=== PATIENT | female | born 1980 | race Two or more races ===

== ENCOUNTER 2022-09-18 12:09 | Emergency (ER) | payer OTHER, SELFPAY ==
--- NOTE | ~2022-09-18 | XR_ITS ---
EXAMINATION: XR CHEST CLINICAL INFORMATION: Cough and shortness of breath. COMPARISON: None TECHNIQUE: 2 views of the chest were obtained. FINDINGS: No significant abnormality is noted involving the heart, lungs, mediastinum, bony thorax or soft tissues. XR/XR chest 2V IMPRESSION: No acute cardiopulmonary process.
[2022-09-18 12:36] VITALS: BP 190/121; PULSE 90; RESP 20; TEMP 36.1; O2SAT 97; BMI 40.7
--- NOTE | 2022-09-18 12:36 | ED_ITS ---
HPI - General Adult General Chief complaint: Dyspnea <Analisa Murray CNP - Last Filed: 09/18/22 12:44> Stated complaint: High blood pressure sent by <Analisa Murray CNP - Last Filed: 09/18/22 12:44> Time Seen by Provider: 09/18/22 17:49 <Analisa Murray CNP - Last Filed: 09/18/22 12:44> Source: patient <Caitlyn Harvey NP - Last Filed: 09/18/22 23:11> Mode of arrival: ambulatory <Caitlyn Harvey NP - Last Filed: 09/18/22 23:11> Limitations: no limitations <Caitlyn Harvey NP - Last Filed: 09/18/22 23:11> History of Present Illness HPI narrative: 42-year-old female presents with 5 days of upper respiratory symptoms, cough, congestion, on Tessalon, albuterol, nebulizers, and Mucinex with no improvement. Also reports that her blood pressure readings have been elevated, and has a headache. She does take amlodipine daily. <Caitlyn Harvey NP - Last Filed: 09/18/22 23:11> Onset (ago): day(s) (5) <Caitlyn Harvey NP - Last Filed: 09/18/22 23:11> Location: head and chest <Caitlyn Harvey NP - Last Filed: 09/18/22 23:11> Radiation: non-radiation <Caitlyn Harvey NP - Last Filed: 09/18/22 23:11> Severity: moderate <Caitlyn Harvey NP - Last Filed: 09/18/22 23:11> Severity scale (1-10): 5 <Caitlyn Harvey NP - Last Filed: 09/18/22 23:11> Quality: aching <Caitlyn Harvey NP - Last Filed: 09/18/22 23:11> Pain Consistency: constant <Caitlyn Harvey NP - Last Filed: 09/18/22 23:11> Relieving factors: none <Caitlyn Harvey NP - Last Filed: 09/18/22 23:11> Exacerbating factors: movement <Caitlyn Harvey NP - Last Filed: 09/18/22 23:11> Associated symptoms: cough, headaches and shortness of breath <Caitlyn Harvey NP - Last Filed: 09/18/22 23:11> Related Data Home medications: Previous Rx's Medication Instructions Recorded albuterol sulfate 2.5 mg/3 mL 2.5 mg (3 mL) inhalation Q4-6H PRN 09/18/22 (0.083 %) solution for nebulization shortness of breath or wheezing #90 mL albuterol sulfate 90 mcg/actuation 2 inh inhalation Q4-6H PRN 09/18/22 breath activated powder inhaler shortness of breath or wheezing #1 ea amlodipine 10 mg tablet 10 mg PO DAILY #30 tabs 09/18/22 prednisone 20 mg tablet 40 mg PO DAILY 5 days #10 tabs 09/18/22 sumatriptan succinate 25 mg tablet 25 mg PO Q2-4H PRN migraine 09/18/22 (Imitrex) headache #8 tabs <Analisa Murray CNP - Last Filed: 09/18/22 12:44> Allergies/adverse reactions: Allergies Allergy/AdvReac Type Severity Reaction Status Date / Time No Known Allergies Allergy Verified 09/18/22 12:42 <Analisa Murray CNP - Last Filed: 09/18/22 12:44> Review of Systems Review of Systems: Constitutional: No Fever, positive Chills, positive fatigue, positive Malaise ENT/Mouth: No sore throat, positive runny nose Eyes: No Discharge Cardiovascular: No Chest Pain, No SOB Respiratory: Positive Cough, No Sputum, positive Wheezing, No Dyspnea Gastrointestinal: No Nausea, No Vomiting, No Diarrhea Musculoskeletal: positive Myalgia Skin: No rash Neuro: Positive Headache <Caitlyn Harvey NP - Last Filed: 09/18/22 23:11> Yes all other systems are reviewed and are negative <Caitlyn Harvey NP - Last Filed: 09/18/22 23:11> PMFSH Past Medical History Attestation statement: The following information was validated with the patient. <Caitlyn Harvey NP - Last Filed: 09/18/22 23:11> Source: old records reviewed <Caitlyn Harvey NP - Last Filed: 09/18/22 23:11> Social History Social History: Social History Alcohol intake: never Smoked in Last 30 Days: No Use of substances other than those prescribed or required for medical reasons: Yes Substance Use Type: Marijuana Advance Directives: No Advance Directives Information Provided: Yes Patient : No <Analisa Mi ANA Murray - Last Filed: 09/18/22 12:44> Physical Exam ED Vital Signs: Vital Signs - 24 hr 09/18/22 12:36 09/18/22 16:37 09/18/22 18:47 Temperature 97.0 F 98.7 F 98.2 F Pulse Rate 90 97 101 H Respiratory Rate 20 17 16 Blood Pressure 190/121 H 186/107 H 181/96 H Pulse Oximetry 97 98 98 Oxygen Delivery Method Room Air Room Air Room Air 09/18/22 18:50 09/18/22 19:45 Temperature Pulse Rate 89 106 H Respiratory Rate 18 15 Blood Pressure 194/110 H Pulse Oximetry 100 Oxygen Delivery Method Room Air BMI result Body Mass Index 40.7 <Analisa Stark ANA Murray - Last Filed: 09/18/22 12:44> Vital Signs - 24 hr 09/18/22 12:36 09/18/22 16:37 09/18/22 18:47 Temperature 97.0 F 98.7 F 98.2 F Pulse Rate 90 97 101 H Respiratory Rate 20 17 16 Blood Pressure 190/121 H 186/107 H 181/96 H Pulse Oximetry 97 98 98 Oxygen Delivery Method Room Air Room Air Room Air 09/18/22 18:50 09/18/22 19:45 Temperature Pulse Rate 89 106 H Respiratory Rate 18 15 Blood Pressure 194/110 H Pulse Oximetry 100 Oxygen Delivery Method Room Air BMI result Body Mass Index 40.7 <Caitlyn Harvey NP - Last Filed: 09/18/22 23:11> Appearance: Alert. Oriented X3. Moderate distress. Eyes: Pupils equal, round and reactive to light. ENT: Pharynx normal. Neck: Normal inspection. Neck supple. No nuchal rigidity. No step-offs. CVS: Normal heart rate and rhythm. Pulses normal. Respiratory: No respiratory distress. Expiratory wheezing throughout. Abdomen: Soft and nontender. Skin: Skin warm and dry. Normal skin color. Normal skin turgor. Extremities: No lower extremity edema. Gait well balanced well coordinated. Neuro: No motor deficit. No sensory deficit. Cranial nerves 2-12 intact. <Caitlyn Harvey NP - Last Filed: 09/18/22 23:11> Course Course Course Narrative: This is an RME: Additional HPI, ROS, PE not included below will be deferre d to primary provider. Patient is a 42-year-old female who presents emergency department for evaluation. Two days ago she began feeling unwell, cold-like symptoms; cough, generalized abdominal cramping, has a history of asthma, has been using her nebulizer treatment multiple times since yesterday. Expresses concern because her blood pressure was 175/104 last night, 195/137 today. Complaining of palpitations, lightheadedness, headache. Called PCP who advised her to come to ED. Has tried Mucinex and Tessalon Perles without any improvement. Denies sick contacts. Plan: labs, EKG, viral testing, CXR, will provide additional dose of amlodipine 5 mg orally at this time <Analisa Murray CNP - Last Filed: 09/18/22 12:44> This is an RME: Additional HPI, ROS, PE not included below will be deferred to primary provider. Patient is a 42-year-old female who presents emergency department for evaluation. Two days ago she began feeling unwell, cold-like symptoms; cough, generalized abdominal cramping, has a history of asth ma, has been using her nebulizer treatment multiple times since yesterday. Expresses concern because her blood pressure was 175/104 last night, 195/137 today. Complaining of palpitations, lightheadedness, headache. Called PCP who advised her to come to ED. Has tried Mucinex and Tessalon Perles without any improvement. Denies sick contacts. Plan: labs, EKG, viral testing, CXR, will provide additional dose of amlodipine 5 mg orally at this time 18:23 42-year-old female presents with upper respiratory symptoms, has been using her nebulizers, Tessalon Perles, [id number] medications including Mucinex with poor effect. She states that she feels her heart racing, and has a headache. She takes amlodipine 5 mg daily, has been taking her blood pressures over the past few days in noting it to be in the 190s over 110s. She did not report any neurological dysfunction, and has no difficulties ambulating. She did state that she had an episode of dizziness while changing positions however that resolved. Patient's lung sounds are extra mikey wheezing throughout all lobes. Will give albuterol neb, dexamethasone p.o.. At this time I feel this is more asthma exacerbation versus infection, antibiotics are not required. 20:10 lung sounds have improved. Headache has resolved. Lab values are within normal limits. Urinalysis shows trace leukocyte esterase without nitrites or white blood cell count. No bacteria noted. Urinalysis is otherwise negative. Again antibiotics not required at this time. Will discharge patient to home with supportive measures, and an increase in amlodipine to 10 mg daily. She does understand that she must take her blood pressure at the same time daily, and presents blood pressures to her primary care physician. Patient verbalized understanding of and agrees plan of care discharge home. Verbalized understanding of signs and symptoms indicating need for emergent intervention. <Caitlyn Harvey NP - Last Filed: 09/18/22 23:11> Medications Administered Discontinued Medications Generic Name Dose Route Start Last Admin Trade Name Freq PRN Reason Stop Dose Admin Acetaminophen/Butalbital/Caffeine 1 tab 09/18/22 18:23 09/18/22 18:45 Butalb/Acetamin/Caff 50/325/40 Tablet PO 09/18/22 18:24 1 tab ONCE ONE Administration Albuterol Sulfate 10 mg 09/18/22 18:23 09/18/22 18:49 Albuterol Sulfate (0.083%) 2.5 Mg/3 Ml Vial.Neb INHALE 09/18/22 18:24 10 mg ONCE ONE Administration Amlodipine Besylate 5 mg 09/18/22 12:40 09/18/22 12:45 Amlodipine Besylate 5 Mg Tablet PO 09/18/22 12:41 5 mg ONCE ONE Administration Protocol Dexamethasone 10 mg 09/18/22 18:41 09/18/22 18:45 Dexamethasone 2 Mg Tablet PO 09/18/22 18:42 10 mg ONCE ONE Administration <Analisa Murray CNP - Last Filed: 09/18/22 12:44> Medications Administered Discontinued Medications Generic Name Dose Route Start Last Admin Trade Name Freq PRN Reason Stop Dose Admin Acetaminophen/Butalbital/Caffeine 1 tab 09/18/22 18:23 09/18/22 18:45 Butalb/Acetamin/Caff 50/325/40 Tablet PO 09/18/22 18:24 1 tab ONCE ONE Administration Albuterol Sulfate 10 mg 09/18/22 18:23 09/18/22 18:49 Albuterol Sulfate (0.083%) 2.5 Mg/3 Ml Vial.Neb INHALE 09/18/22 18:24 10 mg ONCE ONE Administration Amlodipine Besylate 5 mg 09/18/22 12:40 09/18/22 12:45 Amlodipine Besylate 5 Mg Tablet PO 09/18/22 12:41 5 mg ONCE ONE Administration Protocol Dexamethasone 10 mg 09/18/22 18:41 09/18/22 18:45 Dexamethasone 2 Mg Tablet PO 09/18/22 18:42 10 mg ONCE ONE Administration <Caitlyn Harvey NP - Last Filed: 09/18/22 23:11> Medical Decision Making Differential Diagnosis Differential Diagnoses: The differential diagnosis associated with the presentation includes <Caitlyn Harvey NP - Last Filed: 09/18/22 23:11> URI COVID, influenza, migraine, asthma exacerbation <Caitlyn Harvey NP - Last Filed: 09/18/22 23:11> Lab Data MDM Lab Attestation statement: I reviewed the patient's lab results. <Caitlyn Harvey NP - Last Filed: 09/18/22 23:11> Result Diagrams: 09/18/22 13:07 09/18/22 13:07 <Analisa Murray CNP - Last Filed: 09/18/22 12:44> Labs: Lab Results 09/18/22 09/18/22 09/18/22 Range/Units 13:07 13:07 13:07 WBC 9.2 (4.8-10.8) X10*3/uL RBC 4.69 (4.20-5.50) X10*6/uL Hgb 13.4 (12.0-16.0) g/dl Hct 41.8 (37.0-47.0) % MCV 89.1 (80.0-98.0) fL MCH 28.6 (27.0-33.0) pg MCHC 32.1 (31.0-35.0) g/dl RDW 13.4 (11.0-16.0) % Plt Count 331 (160-400) X10*3/uL MPV 10.9 (9.4-12.3) fL Immature Gran % (Auto) 0.9 H (0.0-0.4) % Neut % (Auto) 63.6 (45-73) % Lymph % (Auto) 21.5 (20-40) % [place] % (Auto) 8.6 (2-11) % Eos % (Auto) 4.5 H (0-4) % Baso % (Auto) 0.9 (0-2) % Lymph # (Auto) 2.0 (1.2-4.9) X10*3/uL [place] # (Auto) 0.8 (0.1-1.2) X10*3/uL Eos # (Auto) 0.4 (0.0-0.4) X10*3/uL Baso # (Auto) 0.1 (0.0-0.2) X10*3/uL Abs Immat Gran (auto) 0.08 H (0.00-0.03) X10*3/uL Absolute Neuts (auto) 5.9 (2.0-8.3) x10*3/uL Absolute Nucleated RBC 0.000 (0.0-0.012) X10*3/uL Nucleated RBC % (auto) 0.0 (0.0-0.2) /100WBC Sodium 140 (135-145) mmol/L Potassium 4.0 (3.3-5.1) mmol/L Chloride 105 (96-108) mmol/L Carbon Dioxide 27 (22-29) mmol/L Anion Gap 12 (12-20) BUN 11 (9-16) mg/dL Creatinine 0.68 (0.5-1.4) mg/dL Estim Creat Clear Calc 144.6 Estimated GFR > 60 Random Glucose 101 (60-115) mg/dL Calcium 9.2 (8.4-10.2) mg/dL Magnesium 2.1 (1.6-2.6) mg/dL Total Bilirubin 1.4 H (0.0-1.0) mg/dL AST 24 (5-31) U/L ALT 26 (0-31) U/L Alkaline Phosphatase 121 H (39-117) U/L Troponin I High Sens < 3.5 (<3.5-17.0) ng/L B-Natriuretic Peptide (<100) pg/mL Total Protein 7.2 (6.5-8.0) g/dL Albumin 4.4 (3.5-5.0) g/dL Urine Color Urine Appearance Urine pH (5.0-9.0) Ur Specific [place] (1.005-1.025) Urine Protein (Neg-Trace) mg/dL Urine Glucose (UA) (Negative) mg/dL Urine Ketones (Negative) mg/dL Urine Blood (Negative) Urine Nitrite (Negative) Ur Leukocyte Esterase (Negative) Urine RBC (0-2) /HPF Urine WBC (0-5) /HPF Ur Squamous Epith Cells (0-2) /HPF Urine Bacteria (None Seen) Hyaline Casts (0-2) /LPF Urine Test (NEGATIVE) COVID-19 ([facility]) (Negative) COVID-19 Clin Com Influenza Type A ([place]) (Negative) Influenza Type B ([place]) (Negative) Influenza A & B Note 09/18/22 09/18/22 09/18/22 Range/Units 13:07 13:07 13:07 WBC (4.8-10.8) X10*3/uL RBC (4.20-5.50) X10*6/uL Hgb (12.0-16.0) g/dl Hct (37.0-47.0) % MCV (80.0-98.0) fL MCH (27.0-33.0) pg MCHC (31.0-35.0) g/dl RDW (11.0-16.0) % Plt Count (160-400) X10*3/uL MPV (9.4-12.3) fL Immature Gran % (Auto) (0.0-0.4) % Neut % (Auto) (45-73) % Lymph % (Auto) (20-40) % [place] % (Auto) (2-11) % Eos % (Auto) (0-4) % Baso % (Auto) (0-2) % Lymph # (Auto) (1.2-4.9) X10*3/uL [place] # (Auto) (0.1-1.2) X10*3/uL Eos # (Auto) (0.0-0.4) X10*3/uL Baso # (Auto) (0.0-0.2) X10*3/uL Abs Immat Gran (auto) (0.00-0.03) X10*3/uL Absolute Neuts (auto) (2.0-8.3) x10*3/uL Absolute Nucleated RBC (0.0-0.012) X10*3/uL Nucleated RBC % (auto) (0.0-0.2) /100WBC Sodium (135-145) mmol/L Potassium (3.3-5.1) mmol/L Chloride (96-108) mmol/L Carbon Dioxide (22-29) mmol/L Anion Gap (12-20) BUN (9-16) mg/dL Creatinine (0.5-1.4) mg/dL Estim Creat Clear Calc Estimated GFR Random Glucose (60-115) mg/dL Calcium (8.4-10.2) mg/dL Magnesium (1.6-2.6) mg/dL Total Bilirubin (0.0-1.0) mg/dL AST (5-31) U/L ALT (0-31) U/L Alkaline Phosphatase (39-117) U/L Troponin I High Sens (<3.5-17.0) ng/L B-Natriuretic Peptide < 10 (<100) pg/mL Total Protein (6.5-8.0) g/dL Albumin (3.5-5.0) g/dL Urine Color Urine Appearance Urine pH (5.0-9.0) Ur Specific [place] (1.005-1.025) Urine Protein (Neg-Trace) mg/dL Urine Glucose (UA) (Negative) mg/dL Urine Ketones (Negative) mg/dL Urine Blood (Negative) Urine Nitrite (Negative) Ur Leukocyte Esterase (Negative) Urine RBC (0-2) /HPF Urine WBC (0-5) /HPF Ur Squamous Epith Cells (0-2) /HPF Urine Bacteria (None Seen) Hyaline Casts (0-2) /LPF Urine Test (NEGATIVE) COVID-19 ([facility]) Negative (Negative) COVID-19 Clin Com See Note Influenza Type A ([place]) Negative (Negative) Influenza Type B ([place]) Negative (Negative) Influenza A & B Note See Note 09/18/22 09/18/22 Range/Units 16:45 16:45 WBC (4.8-10.8) X10*3/uL RBC (4.20-5.50) X10*6/uL Hgb (12.0-16.0) g/dl Hct (37.0-47.0) % MCV (80.0-98.0) fL MCH (27.0-33.0) pg MCHC (31.0-35.0) g/dl RDW (11.0-16.0) % Plt Count (160-400) X10*3/uL MPV (9.4-12.3) fL Immature Gran % (Auto) (0.0-0.4) % Neut % (Auto) (45-73) % Lymph % (Auto) (20-40) % [place] % (Auto) (2-11) % Eos % (Auto) (0-4) % Baso % (Auto) (0-2) % Lymph # (Auto) (1.2-4.9) X10*3/uL [place] # (Auto) (0.1-1.2) X10*3/uL Eos # (Auto) (0.0-0.4) X10*3/uL Baso # (Auto) (0.0-0.2) X10*3/uL Abs Immat Gran (auto) (0.00-0.03) X10*3/uL Absolute Neuts (auto) (2.0-8.3) x10*3/uL Absolute Nucleated RBC (0.0-0.012) X10*3/uL Nucleated RBC % (auto) (0.0-0.2) /100WBC Sodium (135-145) mmol/L Potassium (3.3-5.1) mmol/L Chloride (96-108) mmol/L Carbon Dioxide (22-29) mmol/L Anion Gap (12-20) BUN (9-16) mg/dL Creatinine (0.5-1.4) mg/dL Estim Creat Clear Calc Estimated GFR Random Glucose (60-115) mg/dL Calcium (8.4-10.2) mg/dL Magnesium (1.6-2.6) mg/dL Total Bilirubin (0.0-1.0) mg/dL AST (5-31) U/L ALT (0-31) U/L Alkaline Phosphatase (39-117) U/L Troponin I High Sens (<3.5-17.0) ng/L B-Natriuretic Peptide (<100) pg/mL Total Protein (6.5-8.0) g/dL Albumin (3.5-5.0) g/dL Urine Color Yellow Urine Appearance Clear Urine pH 6.5 (5.0-9.0) Ur Specific [place] 1.020 (1.005-1.025) Urine Protein Trace (Neg-Trace) mg/dL Urine Glucose (UA) Negative (Negative) mg/dL Urine Ketones 15 (Negative) mg/dL Urine Blood Negative (Negative) Urine Nitrite Negative (Negative) Ur Leukocyte Esterase Trace H (Negative) Urine RBC 3-5 H (0-2) /HPF Urine WBC 0-5 (0-5) /HPF Ur Squamous Epith Cells 6-10 (0-2) /HPF Urine Bacteria None Seen (None Seen) Hyaline Casts 0-2 (0-2) /LPF Urine Test NEGATIVE (NEGATIVE) COVID-19 ([facility]) (Negative) COVID-19 Clin Com Influenza Type A ([place]) (Negative) Influenza Type B ([place]) (Negative) Influenza A & B Note <Analisa Murray, MUSEUM ATTENDANT - Last Filed: 09/18/22 12:44> Lab Results 09/18/22 09/18/22 09/18/22 Range/Units 13:07 13:07 13:07 WBC 9.2 (4.8-10.8) X10*3/uL RBC 4.69 (4.20-5.50) X10*6/uL Hgb 13.4 (12.0-16.0) g/dl Hct 41.8 (37.0-47.0) % MCV 89.1 (80.0-98.0) fL MCH 28.6 (27.0-33.0) pg MCHC 32.1 (31.0-35.0) g/dl RDW 13.4 (11.0-16.0) % Plt Count 331 (160-400) X10*3/uL MPV 10.9 (9.4-12.3) fL Immature Gran % (Auto) 0.9 H (0.0-0.4) % Neut % (Auto) 63.6 (45-73) % Lymph % (Auto) 21.5 (20-40) % [place] % (Auto) 8.6 (2-11) % Eos % (Auto) 4.5 H (0-4) % Baso % (Auto) 0.9 (0-2) % Lymph # (Auto) 2.0 (1.2-4.9) X10*3/uL [place] # (Auto) 0.8 (0.1-1.2) X10*3/uL Eos # (Auto) 0.4 (0.0-0.4) X10*3/uL Baso # (Auto) 0.1 (0.0-0.2) X10*3/uL Abs Immat Gran (auto) 0.08 H (0.00-0.03) X10*3/uL Absolute Neuts (auto) 5.9 (2.0-8.3) x10*3/uL Absolute Nucleated RBC 0.000 (0.0-0.012) X10*3/uL Nucleated RBC % (auto) 0.0 (0.0-0.2) /100WBC Sodium 140 (135-145) mmol/L Potassium 4.0 (3.3-5.1) mmol/L Chloride 105 (96-108) mmol/L Carbon Dioxide 27 (22-29) mmol/L Anion Gap 12 (12-20) BUN 11 (9-16) mg/dL Creatinine 0.68 (0.5-1.4) mg/dL Estim Creat Clear Calc 144.6 Estimated GFR > 60 Random Glucose 101 (60-115) mg/dL Calcium 9.2 (8.4-10.2) mg/dL Magnesium 2.1 (1.6-2.6) mg/dL Total Bilirubin 1.4 H (0.0-1.0) mg/dL AST 24 (5-31) U/L ALT 26 (0-31) U/L Alkaline Phosphatase 121 H (39-117) U/L Troponin I High Sens < 3.5 (<3.5-17.0) ng/L B-Natriuretic Peptide (<100) pg/mL Total Protein 7.2 (6.5-8.0) g/dL Albumin 4.4 (3.5-5.0) g/dL Urine Color Urine Appearance Urine pH (5.0-9.0) Ur Specific [place] (1.005-1.025) Urine Protein (Neg-Trace) mg/dL Urine Glucose (UA) (Negative) mg/dL Urine Ketones (Negative) mg/dL Urine Blood (Negative) Urine Nitrite (Negative) Ur Leukocyte Esterase (Negative) Urine RBC (0-2) /HPF Urine WBC (0-5) /HPF Ur Squamous Epith Cells (0-2) /HPF Urine Bacteria (None Seen) Hyaline Casts (0-2) /LPF Urine Test (NEGATIVE) COVID-19 ([facility]) (Negative) COVID-19 Clin Com Influenza Type A ([place]) (Negative) Influenza Type B ([place]) (Negative) Influenza A & B Note 09/18/22 09/18/22 09/18/22 Range/Units 13:07 13:07 13:07 WBC (4.8-10.8) X10*3/uL RBC (4.20-5.50) X10*6/uL Hgb (12.0-16.0) g/dl Hct (37.0-47.0) % MCV (80.0-98.0) fL MCH (27.0-33.0) pg MCHC (31.0-35.0) g/dl RDW (11.0-16.0) % Plt Count (160-400) X10*3/uL MPV (9.4-12.3) fL Immature Gran % (Auto) (0.0-0.4) % Neut % (Auto) (45-73) % Lymph % (Auto) (20-40) % [place] % (Auto) (2-11) % Eos % (Auto) (0-4) % Baso % (Auto) (0-2) % Lymph # (Auto) (1.2-4.9) X10*3/uL [place] # (Auto) (0.1-1.2) X10*3/uL Eos # (Auto) (0.0-0.4) X10*3/uL Baso # (Auto) (0.0-0.2) X10*3/uL Abs Immat Gran (auto) (0.00-0.03) X10*3/uL Absolute Neuts (auto) (2.0-8.3) x10*3/uL Absolute Nucleated RBC (0.0-0.012) X10*3/uL Nucleated RBC % (auto) (0.0-0.2) /100WBC Sodium (135-145) mmol/L Potassium (3.3-5.1) mmol/L Chloride (96-108) mmol/L Carbon Dioxide (22-29) mmol/L Anion Gap (12-20) BUN (9-16) mg/dL Creatinine (0.5-1.4) mg/dL Estim Creat Clear Calc Estimated GFR Random Glucose (60-115) mg/dL Calcium (8.4-10.2) mg/dL Magnesium (1.6-2.6) mg/dL Total Bilirubin (0.0-1.0) mg/dL AST (5-31) U/L ALT (0-31) U/L Alkaline Phosphatase (39-117) U/L Troponin I High Sens (<3.5-17.0) ng/L B-Natriuretic Peptide < 10 (<100) pg/mL Total Protein (6.5-8.0) g/dL Albumin (3.5-5.0) g/dL Urine Color Urine Appearance Urine pH (5.0-9.0) Ur Specific [place] (1.005-1.025) Urine Protein (Neg-Trace) mg/dL Urine Glucose (UA) (Negative) mg/dL Urine Ketones (Negative) mg/dL Urine Blood (Negative) Urine Nitrite (Negative) Ur Leukocyte Esterase (Negative) Urine RBC (0-2) /HPF Urine WBC (0-5) /HPF Ur Squamous Epith Cells (0-2) /HPF Urine Bacteria (None Seen) Hyaline Casts (0-2) /LPF Urine Test (NEGATIVE) COVID-19 ([facility]) Negative (Negative) COVID-19 Clin Com See Note Influenza Type A ([place]) Negative (Negative) Influenza Type B ([place]) Negative (Negative) Influenza A & B Note See Note 03/03/23 03/03/23 Range/Units 16:45 16:45 WBC (4.8-10.8) X10*3/uL RBC (4.20-5.50) X10*6/uL Hgb (12.0-16.0) g/dl Hct (37.0-47.0) % MCV (80.0-98.0) fL MCH (27.0-33.0) pg MCHC (31.0-35.0) g/dl RDW (11.0-16.0) % Plt Count (160-400) X10*3/uL MPV (9.4-12.3) fL Immature Gran % (Auto) (0.0-0.4) % Neut % (Auto) (45-73) % Lymph % (Auto) (20-40) % [place] % (Auto) (2-11) % Eos % (Auto) (0-4) % Baso % (Auto) (0-2) % Lymph # (Auto) (1.2-4.9) X10*3/uL [place] # (Auto) (0.1-1.2) X10*3/uL Eos # (Auto) (0.0-0.4) X10*3/uL Baso # (Auto) (0.0-0.2) X10*3/uL Abs Immat Gran (auto) (0.00-0.03) X10*3/uL Absolute Neuts (auto) (2.0-8.3) x10*3/uL Absolute Nucleated RBC (0.0-0.012) X10*3/uL Nucleated RBC % (auto) (0.0-0.2) /100WBC Sodium (135-145) mmol/L Potassium (3.3-5.1) mmol/L Chloride (96-108) mmol/L Carbon Dioxide (22-29) mmol/L Anion Gap (12-20) BUN (9-16) mg/dL Creatinine (0.5-1.4) mg/dL Estim Creat Clear Calc Estimated GFR Random Glucose (60-115) mg/dL Calcium (8.4-10.2) mg/dL Magnesium (1.6-2.6) mg/dL Total Bilirubin (0.0-1.0) mg/dL AST (5-31) U/L ALT (0-31) U/L Alkaline Phosphatase (39-117) U/L Troponin I High Sens (<3.5-17.0) ng/L B-Natriuretic Peptide (<100) pg/mL Total Protein (6.5-8.0) g/dL Albumin (3.5-5.0) g/dL Urine Color Yellow Urine Appearance Clear Urine pH 6.5 (5.0-9.0) Ur Specific [place] 1.020 (1.005-1.025) Urine Protein Trace (Neg-Trace) mg/dL Urine Glucose (UA) Negative (Negative) mg/dL Urine Ketones 15 (Negative) mg/dL Urine Blood Negative (Negative) Urine Nitrite Negative (Negative) Ur Leukocyte Esterase Trace H (Negative) Urine RBC 3-5 H (0-2) /HPF Urine WBC 0-5 (0-5) /HPF Ur Squamous Epith Cells 6-10 (0-2) /HPF Urine Bacteria None Seen (None Seen) Hyaline Casts 0-2 (0-2) /LPF Urine Test NEGATIVE (NEGATIVE) COVID-19 ([facility]) (Negative) COVID-19 Clin Com Influenza Type A ([place]) (Negative) Influenza Type B ([place]) (Negative) Influenza A & B Note <Caitlyn Harvey NP - Last Filed: 09/18/22 23:11> Independent Interpretation I performed an independent interpretation of an: EKG and Plain X-Ray <Caitlyn Harvey NP - Last Filed: 09/18/22 23:11> Interpretation: Normal sinus rhythm Normal ECG No previous ECGs available Vent. rate 82 BPM ID interval 144 ms QRS duration 86 ms QT/QTc 384/448 ms P-R-T axes - 43 18-SEP-2022 13:00:17 <Caitlyn Harvey NP - Last Filed: 09/18/22 23:11> Radiology Impression Discussion of test interpretation with radiology: I have reviewed the radiologist's reading. <Caitlyn Harvey NP - Last Filed: 09/18/22 23:11> Radiologist Impression: EXAMINATION: XR CHEST CLINICAL INFORMATION: Cough and shortness of breath. COMPARISON: None TECHNIQUE: 2 views of the chest were obtained. FINDINGS: No significant abnormality is noted involving the heart, lungs, mediastinum, bony thorax or soft tissues. XR/XR chest 2V IMPRESSION: No acute cardiopulmonary process. <Caitlyn Harvey NP - Last Filed: 09/18/22 23:11> Discharge Plan Discharge Clinical Impression: Asthma with exacerbation, Hypertension, Headache, common migraine <Analisa Murray CNP - Last Filed: 09/18/22 12:44> Patient Disposition: Home, Self-Care <Analisa Murray CNP - Last Filed: 09/18/22 12:44> Instructions: Asthma (ED), Migraine Headache (ED), Hypertension (ED) <Analisa Murray CNP - Last Filed: 09/18/22 12:44> Additional Instructions: You were evaluated for multiple concerns. For asthma, please take albuterol inhalers every 4 hours as needed. Use albuterol nebulizers every 4-6 hours as needed for shortness of breath that is not alleviated by your inhaler usage. We gave you dexamethasone while you were in the emergency department. If your symptoms persist, take prednisone 40 mg for the next 5 days. Please start this medication on 09/21/2022. For your headache, we gave you Fioricet while you were in the emergency departme nt which was effective. We are prescribing use sumatriptan, take this medication as directed for headaches that are not resolved with Tylenol and Motrin. You may consider following up primary care physician if headaches persist. For your elevated blood pressure, please increase her amlodipine from 5 mg to 10 mg. Take amlodipine 10 mg daily. Take your blood pressure in the morning every day at the same time for the next few weeks so that when you present to your primary care physician's office, you have an accurate record of your blood pressures. Alternate Tylenol 650 mg every 6 hours and Motrin 600 mg every 6 hours as needed for pain and fever management. Consider taking these medications 3 hours apart so you have pain and fever management every 3 hours. Write down what time you take these medications to prevent accidental overdose. Motrin is the same medication as Advil and ibuprofen. Tylenol is the same medication as acetaminophen. Thank you for choosing this emergency department for evaluation. Please follow-up with primary care physician as needed. Return to the emergency department for any new, concerning, or worsening symptoms. <Analisa Murray CNP - Last Filed: 09/18/22 12:44> Prescriptions: New albuterol sulfate 90 mcg/actuation aerosol powdr breath activated 2 inh inhalation Q4-6H PRN (Reason: shortness of breath or wheezing) Qty: 1 2RF Rx Instructions: May substitute with medication equivalent accepted by patient's insurance albuterol sulfate 2.5 mg /3 mL (0.083 %) solution for nebulization 2.5 mg inhalation Q4-6H PRN (Reason: shortness of breath or wheezing) Qty: 90 1RF Rx Instructions: May substitute medication equivalent accepted by patient's insurance prednisone 20 mg tablet 40 mg PO DAILY 5 Days Qty: 10 0RF Rx Instructions: Start this medication on 09/21/2022 sumatriptan succinate [Imitrex] 25 mg tablet 25 mg PO Q2-4H PRN (Reason: migraine headache) Qty: 8 0RF Rx Instructions: do not exceed 8 doses per 24 hrs amlodipine 10 mg tablet 10 mg PO DAILY Qty: 30 2RF <Analisa Murray CNP - Last Filed: 09/18/22 12:44> Stand Alone Forms: Work/School Release <Analisa Murray CNP - Last Filed: 09/18/22 12:44> Interventions: ED Discharge Assessment Last Done: 09/18/22 21:05 <Analisa Murray CNP - Last Filed: 09/18/22 12:44> Discharge Date/Time: 09/18/22 21:07 <Analisa Murray CNP - Last Filed: 09/18/22 12:44>
--- NOTE | 2022-09-18 12:40 | ECG_ITS ---
Test Reason : PALPITATIONS Blood Pressure : / mmHG Vent. Rate : 082 BPM Atrial Rate : 082 BPM P-R Int : 144 ms QRS Dur : 086 ms QT Int : 384 ms P-R-T Axes : 027 -22 043 degrees QTc Int : 448 ms Normal sinus rhythm Normal ECG No previous ECGs available Referred By: Analisa Murray Electronically Signed By:BERTRAND DIALLO MD
[2022-09-18] MEDS: amLODIPine Besylate 5 MG TABLET PO (12:45)
[2022-09-18 13:18] LABS: MANUAL DIFF FLAG NO
[2022-09-18 13:32] LABS: Basophils Absolute Auto 0.1 X10*3/uL (0.0-0.2); Basophils Percent Auto 0.9 % (0-2); Eosinophils Absolute Auto 0.4 X10*3/uL (0.0-0.4); Eosinophils Percent Auto 4.5 % (0-4); Hematocrit 41.8 % (37.0-47.0); Hemoglobin 13.4 g/dl (12.0-16.0); Imm Gran Abs Auto 0.08 X10*3/uL (0.00-0.03); Imm Gran Pct Auto 0.9 % (0.0-0.4); Lymphocytes Percent Auto 21.5 % (20-40); Mean Corpuscular HGB Conc 32.1 g/dl (31.0-35.0); Mean Corpuscular Hemoglobin 28.6 pg (27.0-33.0); Mean Corpuscular Volume 89.1 fL (80.0-98.0); Mean Platelet Volume 10.9 fL (9.4-12.3); Monocytes Absolute Auto 0.8 X10*3/uL (0.1-1.2); Monocytes Percent Auto 8.6 % (2-11); Neutrophils Absolute Auto 5.9 x10*3/uL (2.0-8.3); Neutrophils Percent Auto 63.6 % (45-73); Platelet Count 331 X10*3/uL (160-400); Red Blood Count 4.69 X10*6/uL (4.20-5.50); Red Cell Distribution Width 13.4 % (11.0-16.0); White Blood Count 9.2 X10*3/uL (4.8-10.8)
[2022-09-18 13:43] LABS: Alanine Aminotransferase 26 U/L (0-31); Albumin Level 4.4 g/dL (3.5-5.0); Alkaline Phosphatase 121 U/L (39-117); Anion Gap 12 (12-20); Aspartate Amino Transferase 24 U/L (5-31); Bilirubin Total 1.4 mg/dL (0.0-1.0); Blood Urea Nitrogen 11 mg/dL (9-16); Calcium 9.2 mg/dL (8.4-10.2); Carbon Dioxide 27 mmol/L (22-29); Chloride 105 mmol/L (96-108); Creatinine Clr Calc Pharmacy 144.6; Estimated Glomerular Filt Rate > 60; Glucose Random 101 mg/dL (60-115); Magnesium 2.1 mg/dL (1.6-2.6); Sodium 140 mmol/L (135-145); Total Protein 7.2 g/dL (6.5-8.0)
[2022-09-18 13:45] LABS: IDNOW Serial# 16C4AD1C; IDNOW Serial# BCCEAD1C; Influenza A Negative (Negative); Influenza B2 Negative (Negative)
[2022-09-18 13:46] LABS: COVID-19 Test Negative (Negative)
[2022-09-18 13:48] LABS: B Type Natriuretic Peptide < 10 pg/mL (<100)
[2022-09-18 13:56] LABS: Troponin-I High Sensitivity < 3.5 ng/L (<3.5-17.0)
[2022-09-18 16:37] VITALS: BP 186/107; PULSE 97; RESP 17; TEMP 37.1; O2SAT 98
[2022-09-18 16:53] LABS: Appearance Urine Clear; Color Urine Yellow; Glucose Urine UA Negative (Negative); Leukocyte Esterase Urine Trace (Negative); Nitrite Urine Negative (Negative); PH 6.5 (5.0-9.0); UMIC TRIGGER UACC YES; Urine Blood Negative (Negative); Urine Ketones 15 mg/dL (Negative); Urine Protein Trace mg/dL (Neg-Trace)
[2022-09-18 16:55] LABS: Bacteria Urine None Seen (None Seen); Hyaline Casts Urine 0-2 /LPF (0-2); UPreg QC Valid YES; Urine Pregnancy NEGATIVE (NEGATIVE); WBC Urine 0-5 /HPF (0-5)
--- NOTE | 2022-09-18 18:40 | PC.NURSE ---
[place] FLAME DEGREASER: Solu-medrol to be changed to PO dexamethasone.
[2022-09-18] MEDS: Butalb/Acetamin/Caff 50/325/40 TABLET 1 TAB PO (18:45)
[2022-09-18] MEDS: dexAMETHasone 2 MG TABLET 10 MG PO (18:45)
[2022-09-18 18:47] VITALS: BP 181/96; PULSE 101; RESP 16; TEMP 36.8; O2SAT 98
[2022-09-18] MEDS: Albuterol Sulfate (0.083%) 2.5 MG/3 ML VIAL.NEB 10 MG INHALE (18:49)
[2022-09-18 18:50] VITALS: PULSE 89; RESP 18; O2SAT 100
[2022-09-18 19:45] VITALS: BP 194/110; PULSE 106; RESP 15; O2SAT 100
== END 2022-09-18 21:07 | disposition home or self-care (01) ==
PROVIDERS: Nurse Practitioner Family; Emergency Provider Emergency Medicine
DX: J45.901 Unspecified asthma with (acute) exacerbation (principal); R06.00 Dyspnea, unspecified; G43.009 Migraine without aura, not intractable, without status migrainosus; R06.02 Shortness of breath; Z20.822 Contact with and (suspected) exposure to COVID-19; Z20.828 Contact with and (suspected) exposure to other viral communicable diseases; Z79.899 Other long term (current) drug therapy
CPT/HCPCS: 36415; 71046; 80053; 81001; 81025; 83735; 83880; 84484; 85025; 87502; 87635; 93005; 94640; 99284; 99285; J8540